=== PATIENT | male | born 1980 | race Caucasian/White ===

== ENCOUNTER → 2018-09-11 | Outpatient (CLI) | payer BC ==
--- NOTE | 2018-09-12 01:55 | REP ---
Clinical: Cough . Comparison: None . Technique: PA and lateral. Findings: The mediastinum and cardiac silhouette are normal. The lung espinoza are clear and without acute consolidation, effusion, or pneumothorax. The skeletal structures are intact and normal. Impression: 1. No acute cardiopulmonary process. Electronically Signed by Az Delgado MD 09/12/2018 01:47 A
== END ==
LOC: M SMT 15:03
PROVIDERS: ATTEND Internal Medicine Pulmonary Disease
DX: R05 Cough (principal)